=== PATIENT | male | born 1965 | race Caucasian/White ===

== ENCOUNTER 2019-10-18 23:40 | Emergency (ER) | payer MEDICAID, OTHER ==
[~2019-10-18] VITALS: Ht 182.9 cm; Wt 104.5 kg
[~2019-10-18 23:40] MED LIST: CLON0.1T PO; DIPH25CA85 PO; DIPH50 PO; DIVA-78 PO; DOCU-342 PO; HALOD100I IM; LEVE500T53 PO; METF-960 PO; OLAN5TAB2 PO; OMEG1CAP11 PO; SIMV-261 PO; TRIH5TAB2 PO
[2019-10-19 01:54] VITALS: BP 138/90
== END 2019-10-19 03:24 | disposition home or self-care (01) ==
LOC: EMS 23:45
DX: J02.9 Acute pharyngitis, unspecified (principal); J45.909 Unspecified asthma, uncomplicated; F32.9 Major depressive disorder, single episode, unspecified; E78.00 Pure hypercholesterolemia, unspecified; F20.9 Schizophrenia, unspecified; Z77.098 Contact with and (suspected) exposure to other hazardous, chiefly nonmedicinal, chemicals